=== PATIENT | male | born 1995 | race African-American/Black ===

== ENCOUNTER 2019-02-26 12:08 | Emergency (ER) | payer OTHER ==
[~2019-02-26] VITALS: Ht 175.3 cm; Wt 78.5 kg
[2019-02-26 12:36] VITALS: Ht 175.3 cm; Wt 78.5 kg
[2019-02-26 13:57] VITALS: BP 112/61
== END 2019-02-26 13:57 | disposition home or self-care (01) ==
LOC: ED 12:08
DX: S16.1XXA Strain of muscle, fascia and tendon at neck level, initial encounter (principal); S29.012A Strain of muscle and tendon of back wall of thorax, initial encounter; S80.02XA Contusion of left knee, initial encounter; F17.210 Nicotine dependence, cigarettes, uncomplicated; V43.92XA Unspecified car occupant injured in collision with other type car in traffic accident, initial encounter; Y93.89 Activity, other specified; Y92.89 Other specified places as the place of occurrence of the external cause; Y99.8 Other external cause status
CPT/HCPCS: 99406